=== PATIENT | male | born 1965 | race Caucasian/White ===

== ENCOUNTER 2017-02-11 10:53 | Day surgery (SDC) | payer MEDICARE ==
[~2017-02-11] VITALS: Ht 162.6 cm; Wt 66.7 kg
[~2017-02-11 10:53] MED LIST: ATEN25TA OR; BUSP10TA2 OR; DARV100T OR; HYDR-3719 PO; MULTIVIT OR
[2017-02-11] MEDS ORDERED: NS 1,000 ML IV ONE (11:15)
[2017-02-11] MEDS ORDERED: LIDOCAINE 2% INJ 100 MG/5 ML SDV (FOR ANES.) As Ordered ONE (12:04)
[2017-02-11] MEDS ORDERED: PROPOFOL 200 MG/20 ML VIAL As Ordered ONE ×2 (12:04→12:15)
--- NOTE | 2017-02-11 12:24 | ROOR ---
Patient Name: Stephanie Nolasco Procedure Date: 02/11/2017 12:04 PM Date of : 1965 Age: 51 Room: [facility] Gender: Male Note Status: Finalized Procedure: Colonoscopy Indications: Screening for colorectal malignant neoplasm Providers: Jose Rob Jr, MD Referring MD: Sujatha Wilson Requesting Provider: Medicines: Propofol per Anesthesia Complications: No immediate complications. Procedure: Pre-Anesthesia Assessment: - Prior to the procedure, a History and Physical was performed, and patient medications and allergies were reviewed. The patient is competent. The risks and benefits of the procedure and the sedation options and risks were discussed with the patient. All questions were answered and informed consent was obtained. Patient identification and proposed procedure were verified by the physician and the nurse in the pre-procedure area and in the procedure room. Mental Status Examination: alert and oriented. Airway Examination: normal oropharyngeal airway and neck mobility. Respiratory Examination: clear to auscultation. CV Examination: normal. ASA Grade Assessment: II - A patient with mild systemic disease. After reviewing the risks and benefits, the patient was deemed in satisfactory condition to undergo the procedure. The anesthesia plan was to use moderate sedation / analgesia (conscious sedation). Immediately prior to administration of medications, the patient was re-assessed for adequacy to receive sedatives. The heart rate, respiratory rate, oxygen saturations, blood pressure, adequacy of pulmonary ventilation, and response to care were monitored throughout the procedure. The physical status of the patient was re-assessed after the procedure. The Colonoscope was introduced through the anus and advanced to the cecum, identified by appendiceal orifice and ileocecal valve. The colonoscopy was performed without difficulty. The patient tolerated the procedure well. The quality of the bowel preparation was adequate and good. Findings: Hemorrhoids were found on perianal exam. Non-bleeding internal hemorrhoids were found during endoscopy. The hemorrhoids were Grade II (internal hemorrhoids that prolapse but reduce spontaneously) and Grade III (internal hemorrhoids that prolapse but require manual reduction). The rectum, descending colon, transverse colon, ascending colon, cecum, appendiceal orifice and ileocecal valve appeared normal. Multiple small and large-mouthed diverticula were found in the sigmoid colon. A small polyp was found in the recto-sigmoid colon. The polyp was removed with a hot snare. Resection and retrieval were complete. Impression: - Hemorrhoids found on perianal exam. - Non-bleeding internal hemorrhoids. - The rectum, descending colon, transverse colon, ascending colon, cecum, appendiceal orifice and ileocecal valve are normal. - Diverticulosis in the sigmoid colon. - One small polyp at the recto-sigmoid colon, removed with a hot snare. Resected and retrieved. Recommendation: - Repeat colonoscopy in 5 years for surveillance. Jose Rob MD Jose Rob Jr, MD 02/11/2017 12:24:21 PM This report has been signed electronically. Number of Addenda: 0 Note Initiated On: 02/11/2017 12:04 PM Estimated Blood Loss: Estimated blood loss: none.
[2017-02-11 13:10] VITALS: BP 140/95
== END 2017-02-11 13:08 | disposition home or self-care (01) ==
LOC: M OPP 10:53
PROVIDERS: ATTEND Surgery
DX: Z12.11 Encounter for screening for malignant neoplasm of colon (principal); D12.7 Benign neoplasm of rectosigmoid junction; K64.2 Third degree hemorrhoids; K64.1 Second degree hemorrhoids; K57.30 Diverticulosis of large intestine without perforation or abscess without bleeding; K64.4 Residual hemorrhoidal skin tags; I10 Essential (primary) hypertension; R06.83 Snoring; F17.210 Nicotine dependence, cigarettes, uncomplicated; Z88.0 Allergy status to penicillin; Z79.899 Other long term (current) drug therapy

== ENCOUNTER 2022-10-20 21:11 | Inpatient (IN) | payer MEDICARE ==
[~2022-10-20] VITALS: Ht 162.6 cm; Wt 61.0 kg
[2022-10-20] MEDS ORDERED: BACL10TA2 (21:25)
[2022-10-20 23:19] LABS: HEMOGLOBIN 16.8 g/dl (13.5-17.5); MEAN CORPUSCULAR HEMOGLOBIN 31.5 pg (27.0-33.0); MEAN CORPUSCULAR HGB CONC 34.3 g/dl (32.0-36.5); MEAN CORPUSCULAR VOLUME 91.9 fl (80.0-96.0); PLATELET COUNT, AUTOMATED 275 10^3/uL (150-450); RED BLOOD COUNT 5.33 10^6/uL (4.30-6.10); WHITE BLOOD COUNT 10.4 10^3/uL (4.0-10.0)
[2022-10-20 23:41] LABS: AMPHETAMINES LEVEL URINE NEGATIVE (NEGATIVE); BARBITURATES URINE NEGATIVE (NEGATIVE); BENZODIAZEPINES URINE NEGATIVE (NEGATIVE); METHADONE URINE NEGATIVE (NEGATIVE); OPIATES URINE NEGATIVE (NEGATIVE); PHENCYCLIDINE URINE NEGATIVE (NEGATIVE)
[2022-10-20 23:42] LABS: CANNABINOIDS URINE NEGATIVE (NEGATIVE)
[2022-10-20 23:43] LABS: ETHYL ALCOHOL (ETHANOL) 0.072 % (0.000-0.010)
[2022-10-20 23:44] LABS: COCAINE METABOLITE URINE POSITIVE (NEGATIVE)
[2022-10-20 23:45] LABS: ACETAMINOPHEN LEVEL < 2.0 UG/ML (10.0-20.0); ALBUMIN 4.1 G/DL (3.2-5.2); ALKALINE PHOSPHATASE 63 U/L (46-116); ALT/SGPT 30 U/L (7.0-40); AST/SGOT 27 U/L (<34); BILIRUBIN,DIRECT < 0.1 MG/DL (<0.4); BILIRUBIN,TOTAL 0.3 MG/DL (0.3-1.2); BLOOD UREA NITROGEN 9 MG/DL (9-23); CALCIUM LEVEL 8.5 MG/DL (8.5-10.1); CARBON DIOXIDE LEVEL 27 MMOL/L (20-31); CHLORIDE LEVEL 103 MMOL/L (98-107); CREATININE FOR GFR 0.94 MG/DL (0.70-1.30); GLOMERULAR FILTRATION RATE > 60.0 (>56); GLUCOSE, FASTING 137 MG/DL (60-100); POTASSIUM SERUM 5.3 MMOL/L (3.5-5.1); SALICYLATE LEVEL < 3.0 MG/DL (<30); SODIUM LEVEL 139 MMOL/L (136-145); TOTAL PROTEIN 7.3 G/DL (5.7-8.2)
[2022-10-20 23:47] LABS: THYROID STIMULATING HORMONE 0.949 uIU/ML (0.55-4.78)
[2022-10-20] MEDS ORDERED: BACL10TA2 PO (23:59)
[2022-10-20] MEDS ORDERED: ATEN25TA PO (23:59)
[2022-10-21] MEDS ORDERED: HOME MED LIST COMPLETE! XX SCH
[2022-10-21] MEDS ORDERED: SOD POLYSTYRENE SULFONATE SUSP 15GM 60ML UD PO ONE (00:05)
[2022-10-21] MEDS ORDERED: atenoloL 25 MG TAB PO SCH (09:00)
[2022-10-21] MEDS ORDERED: NICOTINE 21MG/24HR 1 EA TRANSDERMAL TD PRN (21:30)
[2022-10-21] MEDS ORDERED: diphenhydrAMINE 25MG CAP PO PRN (21:30)
[2022-10-21] MEDS ORDERED: IBUPROFEN 400MG TAB PO PRN (21:30)
[2022-10-21] MEDS ORDERED: MAALOX 30 ML SUSP *UDC PO PRN (21:30)
[2022-10-21] MEDS ORDERED: MOM 30ML SUSPENSION UDC PO PRN (21:30)
[2022-10-21] MEDS ORDERED: traZODone 50 MG TAB PO PRN (21:30)
[2022-10-21] MEDS ORDERED: OLANZapine ORAL DISINTEGRATING TAB 5MG PO PRN (21:30)
[2022-10-21] MEDS ORDERED: BACLOFEN 10 MG TAB PO PRN (21:30)
[2022-10-21] MEDS ORDERED: ACETAMINOPHEN TAB 650MG DOSE (2X325MG) PO PRN (21:30)
[2022-10-22] VITALS (8 sets, daily range): BP systolic 130–150; BP diastolic 80–94; TEMP 96.8–98; O2SAT 97–99
[2022-10-22] MEDS ORDERED: LORazepam 2 MG TAB PO PRN (03:45)
[2022-10-22] MEDS: THIAMINE 100 MG TAB PO SCH ×2 (05:29→21:00)
[2022-10-22] MEDS: atenoloL 25 MG TAB PO SCH (08:24)
[2022-10-22] MEDS: MULTIVITAMINS/MINERALS THERAP 1 TAB PO SCH (08:24)
[2022-10-22] MEDS: FOLIC ACID 1MG TAB PO SCH (08:24)
[2022-10-22 12:45] LABS: BLOOD UREA NITROGEN 16 MG/DL (9-23); CARBON DIOXIDE LEVEL 30 MMOL/L (20-31); CHLORIDE LEVEL 105 MMOL/L (98-107); GLOMERULAR FILTRATION RATE > 60.0 (>56); GLUCOSE, FASTING 66 MG/DL (60-100); POTASSIUM SERUM 4.6 MMOL/L (3.5-5.1); SODIUM LEVEL 142 MMOL/L (136-145)
[2022-10-22] MEDS: VANICREAM MOISTURIZING SKIN CREAM 113GM TUBE TOP SCH ×2 (13:34→21:00)
[2022-10-23] VITALS (7 sets, daily range): BP systolic 136–150; BP diastolic 79–100; TEMP 97–98.6; O2SAT 97–99
[2022-10-23] MEDS: MULTIVITAMINS/MINERALS THERAP 1 TAB PO SCH (07:57)
[2022-10-23] MEDS: FOLIC ACID 1MG TAB PO SCH (07:57)
[2022-10-23] MEDS: THIAMINE 100 MG TAB PO SCH ×2 (07:57→21:00)
[2022-10-23] MEDS: atenoloL 25 MG TAB PO SCH (08:02)
[2022-10-23] MEDS: VANICREAM MOISTURIZING SKIN CREAM 113GM TUBE TOP SCH ×2 (08:03→21:52)
[2022-10-24 06:13] VITALS: BP 150/90; TEMP 97.1; O2SAT 99
[2022-10-24 06:46] VITALS: BP 150/90
[2022-10-24] MEDS: atenoloL 25 MG TAB PO SCH (08:34)
[2022-10-24] MEDS: MULTIVITAMINS/MINERALS THERAP 1 TAB PO SCH (08:35)
[2022-10-24] MEDS: FOLIC ACID 1MG TAB PO SCH (08:35)
[2022-10-24] MEDS: THIAMINE 100 MG TAB PO SCH (08:35)
[2022-10-24] MEDS: VANICREAM MOISTURIZING SKIN CREAM 113GM TUBE TOP SCH ×2 (09:36→21:32)
[2022-10-24 14:00] VITALS: BP 152/90
[2022-10-24 14:40] VITALS: BP 180/106; TEMP 98; O2SAT 98
[2022-10-24 14:45] VITALS: BP 152/90
[2022-10-25 06:20] VITALS: BP 144/90; TEMP 97.1; O2SAT 98
[2022-10-25] MEDS: VANICREAM MOISTURIZING SKIN CREAM 113GM TUBE TOP SCH ×2 (08:52→21:56)
[2022-10-25] MEDS: atenoloL 25 MG TAB PO SCH (08:52)
[2022-10-25 17:08] VITALS: BP 140/92; TEMP 96.8
[2022-10-26 06:50] VITALS: BP 150/90; TEMP 97.5
[2022-10-26] MEDS: VANICREAM MOISTURIZING SKIN CREAM 113GM TUBE TOP SCH ×2 (08:08→21:00)
[2022-10-26] MEDS: atenoloL 25 MG TAB PO SCH (08:09)
[2022-10-26] MEDS ORDERED: NICO21PAT TD (12:43)
[2022-10-26 16:21] VITALS: BP 152/92; TEMP 98; O2SAT 100
[2022-10-27 06:09] VITALS: BP 160/98; TEMP 98.2; O2SAT 100
[2022-10-27 08:30] VITALS: BP 160/96
[2022-10-27] MEDS: atenoloL 25 MG TAB PO SCH (08:30)
[2022-10-27] MEDS: VANICREAM MOISTURIZING SKIN CREAM 113GM TUBE TOP SCH (08:30)
== END 2022-10-27 11:12 | disposition home or self-care (01) | DRG 885 ==
LOC: M ED 21:11 → M ED INP 10-21 21:26 → M PSY 10-22 01:10
PROVIDERS: ADMIT Psychiatry & Neurology Psychiatry; ATTEND Student in an Organized Health Care Education/Training Program
DX: F29 Unspecified psychosis not due to a substance or known physiological condition (principal); F10.159 Alcohol abuse with alcohol-induced psychotic disorder, unspecified; F14.159 Cocaine abuse with cocaine-induced psychotic disorder, unspecified; F17.200 Nicotine dependence, unspecified, uncomplicated; E87.5 Hyperkalemia; G89.29 Other chronic pain; M54.9 Dorsalgia, unspecified; Z88.0 Allergy status to penicillin